=== PATIENT | female | born 1975 | race Caucasian/White ===

== ENCOUNTER 2018-12-30 14:00 | Outpatient (CLI) | payer OTHER ==
--- NOTE | 2019-01-03 09:29 | Mammography Report ---
Reason: ROUTINE MAMMO Procedure Date: 12/30/2018 Accession Number: [id number] / [id number] Procedure: MGN - Screening Mammo Dig Bilat CPT Code: Final Report FULL RESULT: EXAM: Screening Mammo Dig Bilat DATE: 12/30/2018 2:14 PM CLINICAL HISTORY: Screening encounter. History of late childbearing. TECHNIQUE: (B) - Bilateral CC and MLO views were obtained. COMPARISON: 11/13/2017. PARENCHYMAL PATTERN: (D) - The breast(s) demonstrate(s) heterogeneously dense fibroglandular parenchyma. FINDINGS: There are no suspicious masses, calcifications, or areas of distortion. IMPRESSION: Negative examination. BI-RADS category 1. RECOMMENDATION: (ANNUAL) - Recommend routine annual screening mammography. BI-RADS CATEGORY: (1) - Negative. STANDARD QUALIFYING STATEMENTS: 1. This examination was not reviewed with the aid of Computer-Aided Detection (CAD). 2. A negative or benign imaging report should not preclude biopsy if clinically suspicious findings are present. 3. Dense breasts may obscure an underlying neoplasm. 4. This examination was reviewed without the aid of 3D breast imaging (tomosynthesis).
== END 2018-12-30 14:01 | disposition home or self-care (01) ==
LOC: DI.N 14:00
DX: Z12.31 Encounter for screening mammogram for malignant neoplasm of breast (principal)
CPT/HCPCS: 77067

== ENCOUNTER 2020-04-02 07:24 | Day surgery (SDC) | payer OTHER ==
[2020-04-02] MEDS ORDERED: LACTATED RINGERS 1,000 ML IV ONE ×2 (07:30→11:23)
[2020-04-02] MEDS ORDERED: ceFAZolin 2 GM/50 ML 2 GM/50 ML BAG IV ONE (07:33)
[2020-04-02 07:45] LABS: HCG UR QUAL NEGATIVE
[2020-04-02] MEDS ORDERED: LIDOCAINE-MPF 2% 5 ML VIAL ONE (08:07)
[2020-04-02] MEDS ORDERED: PROPOFOL 200 MG/20 ML VIAL IVP ONE (08:07)
[2020-04-02] MEDS ORDERED: BUPIVACAINE 0.25% PF 30 ML VIAL ONE (08:47)
--- NOTE | 2020-04-02 08:53 | ANESTHESIA ---
Pre-Anesthesia VS, & Labs - Diagnosis Right Finger Fracture - Procedure right finger ORIF Vital Signs: Temp Pulse Resp BP Pulse Ox 36.6 C 95 16 127/74 98 04/02/20 07:31 04/02/20 07:31 04/02/20 07:31 04/02/20 07:31 04/02/20 07:31 Height: 5 ft 11 in Weight (kg): 90 kg Body Mass Index: 27.6 BMI Classification: Overweight - NPO >8 hours - Is Patient ?: No Home Medications and Allergies Home Medications: Ambulatory Orders Ascorbic Acid [Vitamin C] 500 mg PO DAILY 03/30/20 Calcium Carbonate/Vitamin D3 [Calcium 250-Vit D3 125 Tablet] 1 each PO DAILY 03/30/20 Magnesium 250 mg PO DAILY 03/30/20 Naproxen Sodium [Aleve] 220 mg PO DAILY 03/30/20 Zinc Gluconate [Zinc] 50 mg PO DAILY 03/30/20 Ascorbic Acid [Vitamin C] 500 mg PO DAILY 03/30/20 Calcium Carbonate/Vitamin D3 [Calcium 250-Vit D3 125 Tablet] 1 each PO DAILY 03/30/20 Magnesium 250 mg PO DAILY 03/30/20 Naproxen Sodium [Aleve] 220 mg PO DAILY 03/30/20 Zinc Gluconate [Zinc] 50 mg PO DAILY 03/30/20 Allergies/Adverse Reactions: Allergies Allergy/AdvReac Type Severity Reaction Status Date / Time No Known Drug Allergies Allergy Verified 04/02/20 07:53 Anes History & Medical History - Anesthetic History Anesthesia Complications: reports: No previous complications Family history of Anesthesia Complications: Denies Family history of Malignant Hyperthermia: Denies - Medical History Cardiovascular: reports: None Pulmonary: reports: Other Gastrointestinal: reports: None Urinary: reports: None Musculoskeletal: reports: Other Endocrine/Autoimmune: reports: None Skin: reports: None - Surgical History Eyes Ears Nose Throat (EENT): Tonsil/Adenoidectomy, Other Gynecologic: Dilation and currettage Orthopedic: Other Exam General: Alert, Oriented x3, Cooperative, No acute distress Dental: WNL Mouth Openin Fingerbreadth Neck Mobility: Normal Mallampati classification: II Thyromental Distance: 4-6 cm Respiratory: Lungs clear, Normal breath sounds, No respiratory distress, No accessory muscle use Cardiovascular: Regular rate, Normal S1, Normal S2, No murmurs Mental/Cognitive Status: Alert/Oriented X3, Normal for patient Cognitive Status: Within normal limits Plan Anesthesia Type: General Consent for Procedure(s) Verified and Reviewed: Yes Code Status: Attempt Resuscitation ASA classification: 1-Healthy patient Is this case an emergency?: No
[2020-04-02] MEDS ORDERED: fentaNYL 100 MCG/2 ML VIAL ONE ×2 (09:18→10:02)
[2020-04-02] MEDS ORDERED: ceFAZolin 1 GM VIAL ONE (09:18)
[2020-04-02] MEDS ORDERED: DEXAMETHASONE 4 MG/ML VIAL ONE (09:23)
[2020-04-02] MEDS ORDERED: ONDANSETRON 4 MG/2 ML VIAL ONE ×2 (09:23→12:31)
[2020-04-02] MEDS ORDERED: BUPIVACAINE 0.25% PF 30 ML VIAL SUBQ ONE ×2 (09:24→11:04)
[2020-04-02] MEDS ORDERED: ePHEDrine 50 MG/ML VIAL IVP PRN (10:07)
[2020-04-02] MEDS ORDERED: MORPHINE 2 MG/ML CARPUJECT IVP PRN (10:07)
[2020-04-02] MEDS ORDERED: METOCLOPRAMIDE 10 MG/2 ML VIAL IVP PRN (10:07)
[2020-04-02] MEDS ORDERED: ONDANSETRON 4 MG/2 ML VIAL IVP PRN ×2 (10:07→11:36)
[2020-04-02] MEDS ORDERED: NALOXONE 0.4 MG/ML VIAL IVP PRN (10:07)
[2020-04-02] MEDS ORDERED: ATROPINE ABBOJECT 1 MG/10 ML SYRINGE IVP PRN (10:07)
[2020-04-02] MEDS ORDERED: fentaNYL 100 MCG/2 ML VIAL IVP PRN (10:07)
[2020-04-02] MEDS ORDERED: HYDROmorphone 0.5 MG/0.5 ML SYRINGE IVP PRN (10:07)
[2020-04-02] MEDS ORDERED: LACTATED RINGERS 1,000 ML IV SCH (11:00)
[2020-04-02] MEDS ORDERED: oxyCODONE 5 MG TABLET PO PRN (11:36)
--- NOTE | 2020-04-02 11:58 | OPERATIVE REPORT ---
Operative Report - General Procedure Date: 04/02/20 - Procedure Note Anesthesia Technique: General LMA Estimated Blood Loss (mL): 5 - Other Other Information/Narrative: Date of Procedure: 02 April 2020 Planned Procedure: Right small finger proximal phalanx open versus closed reduction, percutaneous pinning versus internal fixation Pre-op diagnosis: Right small finger closed unstable proximal phalanx fracture Procedure performed: Right small finger proximal phalanx open reduction internal fixation Post-op diagnosis: Right small finger closed comminuted proximal phalanx fracture Primary Surgeon: MADDY HUBER Secondary Surgeon: RYDER MARK Anesthesia: General LMA EBL: 5 ml Tourniquet: 120 minutes, right arm at 250mmHg. Specimen(s) Information: None Implants: Synthes 1.3 mm T plate Synthes 1.3 mm cortex screws x7 (6 in plate, 1 independent lag) Complication(s): None Condition: Stable to recovery Indications for Surgery: The patient is a 44-year-old dyily-bqcc-lwftoley female who sustained injury to your right small finger approximately 2 weeks ago when she fell while moving a carpet. She landed on her right hand with pain and deformity to the small finger. Evaluated by her primary care provider, radiographs obtained demonstrating a proximal phalanx fracture and subsequently referred to orthopedics. Exam demonstrated. Swollen and shortened proximal phalanx with extensive ecchymosis to the ulnar hand. Xrays demonstrated a comminuted unstable proximal phalanx fracture that was translated and shortened. The patient was counseled on treatment options to attmpted closed reduction and casting versus closed reduction and percutaneous pinning vs open reduction and internal fixation. Given the instability of the fracture, I explained that casting or splinting would likely be unable to adequately hold the reduction. I recommended operative intervention. Risks of surgery were discussed to include bleeding, infection, postoperative stiffness, implant complications, pin tract infections, loss of reduction, need for further procedures procedures, damage to nerves, vessels, tendons, ligaments, bone and cartilage and anesthesia complications to include medication side effects and allergic reactions and even . After discussion, she wished to proceed. Subsequent to this visit, a CT was obtained for preoperative planning. The CT demonstrated extensive comminution, making successful percutaneous pinning unlikely. I discussed these findings with the patient on the morning of surgery. Findings: Shortened comminuted proximal phalanx fracture of the right small finger Descriptions of Procedure: The patient was met in the Preoperative Holding Area, at which time preoperative paperwork was confirmed. The right small finger proximal phalanx was signed. The patient was then brought to Main Operating Room, placed supine on the Operating Room table. General anesthesia was induced. The operative extremity was then prepped and draped over a hand table in the normal sterile fashion after a well- padded tourniquet was placed on the proximal arm. A surgical timeout was conducted to confirm the correct patient, correct extremity and correct procedure and to confirm that antibiotics had been administered within 30 minutes of incision time. The operative extremity was then exsanguinated with an Esmarch bandage and tourniquet inflated to 250mmHg. A dorsal incision was marked out from the metacarpophalangeal joint to the proximal interphalangeal joint of the small finger. The incision was sharply made using a 15 blade through the skin. Dissection was further carried out with tenotomy scissors to the level of the extensor tendon. Extensor tendon was then split near midline longitudinally from the proximal edge of the phalanx to the distal edge of the phalanx. A layer was developed between the deep surface of the extensor tendon and the periosteum. The tendon was retracted and then the periosteal layer was longitudinally incised and elevated from the surface of the bone using a [place] elevator. The fracture was exposed, and the fracture edges were debrided of fibrous tissue and fracture hematoma the longitudinal split in the distal piece was more apparent and distracted then was demonstrated on the CT scan. The decision was made to place a lag screw between the 2 fragments to stabilize the splint. A 1.3 mm lag screw was placed with good stabilization of the longitudinal split. Next we turned our attention to the more proximal oblique fracture line. A Synthes 1.3 mm T plate was selected and templated on the bone using fluoroscopy. The size of the plate was confirmed to be appropriate, and once satisfied with the alignment, a single cortex screw was placed through the plate proximally to anchor it to the proximal fragment. We then clamped the plate to the bone to affect a reduction between the proximal and distal fragments. We visually confirmed the reduction and then sequentially placed screws distal to the fracture line. We attempted to lag through the plate through the oblong hole in a lag by technique manner, however there was not great purchase in the distal bone. We placed 2 more screws distally, and then came back to the oblong hole and replaced that screw with a screw lag by technique and a different trajectory. 2 additional screws were placed in the proximal fragment. Fluoroscopy was used to confirm screw length. The 2 distalmost screws were found to be a couple millimeters too long and so they were exchanged for more appropriately sized screws. Fluoroscopy was used to confirm screw length and fracture reduction, finger rotation was confirmed to be normal by bending the fingers and also the utilizing the tenodesis effect of the wrist. Satisfied with the construct, the wound was irrigated and then a layered closure was began. The periosteal layer was closed over the plate using a running 3-0 Vicryl. The extensor tendon was then closed using a running 3-0 Vicryl proximally and several interrupted 3-0 Vicryl simple stitches distally. Following this repair the wound was again irrigated and I took the finger through range of motion to ensure that we had not overtightened anything. The skin was then closed using a combination of vertical and horizontal mattress sutures with 4-0 nylon. Local anesthetic to the small finger was provided using 5 mL of quarter percent Marcaine plain. The incision was dressed with Xeroform and 4 x 4 gauze. 4 x 4 gauze fluffs were placed between the fingers and then a plaster ulnar gutter splint was applied and secured in place with a gently compressive Donovan bandage. The tourniquet was let down. The patient was then awakened from general anesthesia without complication, brought to the Post Anesthesia Care for further recovery. Postoperative Plan: 1. The patient will be discharged from the Same Day Surgery Unit when discharge criteria are met. 2. The patient will remain in a splint for approximately 3 days until hand therapy follow-up, the splint will be removed by the therapists, with fabrication of a removable Orthoplast splint and initiation of early active motion. 3. I expect addition of passive motion at approximately 4-6 weeks depending on fracture healing 4. Discharge precautions were provided in both verbal and written form to the patient
[2020-04-02 12:30] VITALS: BP 105/67
--- NOTE | 2020-04-02 13:49 | ANESTHESIA POST OP EVALUATION ---
Anesthesia Post Eval - Post Anesthesia Eval Vitals: Last Vital Signs Temp 36.5 C 04/02/20 11:58 Pulse 88 04/02/20 12:26 Resp 14 04/02/20 12:26 BP 105/67 04/02/20 12:26 Pulse Ox 96 04/02/20 12:26 CV Function Including HR & BP: positive: Stable Pain Control: positive: Satisfactory Nausea & Vomiting: positive: Negative Mental Status: positive: Patient Participates Respiratory Status: Airway Patent Hydration Status: Satisfactory Anesthesia Complications: positive: None
== END 2020-04-02 07:25 | disposition home or self-care (01) ==
LOC: SDS 07:24
PROVIDERS: ATTEND Orthopaedic Surgery
DX: S62.616A Displaced fracture of proximal phalanx of right little finger, initial encounter for closed fracture (principal); E66.3 Overweight; Z68.27 Body mass index [BMI] 27.0-27.9, adult
CPT/HCPCS: 26735; 81025; J0690; J7120

== ENCOUNTER 2020-04-28 13:01 | Outpatient (CLI) | payer OTHER ==
--- NOTE | 2020-04-29 07:24 | Mammography Report ---
BILATERAL DIGITAL SCREENING MAMMOGRAM 3D/2D: 04/28/2020 CLINICAL: Routine screening. Comparison is made to exams dated: 12/30/2018 mammogram - [facility] and 11/13/2017 mammogram - [facility]. The tissue of both breasts is heterogeneously dense. This may lower the sensitivity of mammography. There is a new round low density asymmetry with an obscured and circumscribed margin in the left [address] st at 7 o'clock middle depth. There also is a new round asymmetry with a circumscribed margin in the left breast middle depth centr al to the nipple seen on the mediolateral oblique view only. No other significant masses, calcifications, or other findings are seen in either breast. IMPRESSION: INCOMPLETE: NEEDS ADDITIONAL IMAGING EVALUATION The new round low density asymmetry in the left breast at 7 o'clock middle depth is indeterminate. A dditional views with possible ultrasound are recommended. The new round asymmetry in the left breast middle depth central to the nipple seen on the mediolatera l oblique view only most likely is a lymph node and is indeterminate. Additional views with possible ultrasound are recommended. This exam was interpreted at Station ID: [id number]. NOTE: For mammograms, a report in lay terms will be sent to the patient. Approximately 15% of breast malignancies will not be visualized mammographically. In the management of a palpable breast mass, a negative mammogram must not discourage biopsy of a clinically suspicious lesion. Electronically Signed By: Angela clinton/:04/28/2020 16:51:03 ACR BI-RADS Category 0: Incomplete 3340F PARENCHYMAL PATTERN: (D) - The breast(s) demonstrate(s) heterogeneously dense fibroglandular parelias zamarripa. BI-RADS CATEGORY: (0) - 0 Mammo and [place] [id number] Immediate follow-up LATERALITY: (B)
== END 2020-04-28 13:02 | disposition home or self-care (01) ==
LOC: DI.N 13:01
DX: Z12.31 Encounter for screening mammogram for malignant neoplasm of breast (principal); N64.89 Other specified disorders of breast

== ENCOUNTER 2020-05-18 08:25 | Outpatient (CLI) | payer OTHER ==
--- NOTE | 2020-05-19 13:40 | Mammography Report ---
UNILATERAL LEFT DIGITAL DIAGNOSTIC MAMMOGRAM 3D/2D: 05/18/2020 CLINICAL: Patient returns today to evaluate a focal asymmetry in the left breast. Comparison is made to exams dated: 04/28/2020 mammogram, 12/30/2018 mammogram - [facility], and 11/13/2017 mammogram - [facility]. The tissue of left breast is heterogeneo usly dense. This may lower the sensitivity of mammography. There is an oval equal density mass in the left breast at 7 o'clock middle depth. This is seen in ad ditional views. There also is a 0.3 cm oval focal asymmetry in the left breast central to the nipple posterior depth. No other significant masses or calcifications are seen in the breast. IMPRESSION: INCOMPLETE: NEEDS ADDITIONAL IMAGING EVALUATION 1) Mass in the left breast at 7 o'clock middle depth is indeterminate. -A targeted ultrasound is recommended and will immediately follow. 2) The 0.3 cm oval focal asymmetry in the left breast central to the nipple posterior depth resembles a cyst or an intramammary node and is indeterminate. -A targeted ultrasound is recommended and will immediately follow. This exam was interpreted at Station ID: [id number]. NOTE: For mammograms, a report in lay terms will be sent to the patient. Approximately 15% of breast malignancies will not be visualized mammographically. In the management of a palpable breast mass, a negative mammogram must not discourage biopsy of a clinically suspicious lesion. Electronically Signed By: Evan Mccullough M.D. slc/:05/18/2020 10:14:11 ACR BI-RADS Category 0: Incomplete 3340F PARENCHYMAL PATTERN: (D) - The breast(s) demonstrate(s) heterogeneously dense fibroglandular meghan zamarripa. BI-RADS CATEGORY: (0) - 0 Ultrasound [id number] Immediate follow-up LATERALITY: (B)
--- NOTE | 2020-05-19 13:40 | Ultrasound Report ---
LIMITED ULTRASOUND OF LEFT BREAST AND AXILLA: 05/18/2020 CLINICAL: Patient returns today to evaluate a focal asymmetry in the left breast. Comparison is made to exams dated: 04/28/2020 mammogram, 12/30/2018 mammogram - [facility], and 11/13/2017 mammogram - [facility]. Color flow and real-time ultrasound of the left breast 7 o'clock, 9 o'clock, retroareolar, and axilla regions were performed. Cottrell scale images of the real-time examination were reviewed. There is a 1 cm x 0.7 cm x 0.5 cm oval mass with a circumscribed margin in the left breast at 7 o'amada ck middle depth 4 cm from the nipple. This oval mass is hypoechoic. This correlates with mammograph y findings. Color flow imaging demonstrates that there is vascularity present. No significant abnormalities were seen sonographically in the left axilla. IMPRESSION: SUSPICIOUS OF MALIGNANCY 1) The 1 cm x 0.7 cm x 0.5 cm oval mass in the left breast resembles a fibroadenoma and is at a low s uspicion for malignancy. -An ultrasound guided biopsy is recommended. 2) No ultrasound correlate for the focal asymmetry in the central breast. -A follow-up mammogram is recommended in 6 months. Exam findings were discussed with the patient by Dr. Luis Mak. This exam was interpreted at Station ID: [id number]. Electronically Signed By: Evan Mccullough M.D. slc/:05/18/2020 10:02:26 Ultrasound BI-RADS: 4a Low suspicion for malignancy BI-RADS CATEGORY: (4a) - Low Susp None [id number] Immediate follow-up LATERALITY: ()
== END 2020-05-18 08:26 | disposition home or self-care (01) ==
LOC: DI 08:25
PROVIDERS: ATTEND Physician Assistant
DX: R92.8 Other abnormal and inconclusive findings on diagnostic imaging of breast (principal); N63.24 Unspecified lump in the left breast, lower inner quadrant

== ENCOUNTER 2020-06-02 12:07 | Outpatient (CLI) | payer OTHER ==
[~2020-06-02 12:07] MED LIST: BUFFERED LIDOCAINE 10 ML SYRINGE ONE; LIDOCAINE MPF 1%-EPI 1:200000 30 ML VIAL ONE
[2020-06-02] MEDS ORDERED: BUFFERED LIDOCAINE 10 ML SYRINGE IU ONE (15:39)
[2020-06-02] MEDS ORDERED: LIDOCAINE 1%-EPI 1:100000 30 ML MDV ID ONE (17:00)
[2020-06-02] MEDS ORDERED: LIDOCAINE MPF 1%-EPI 1:200000 30 ML VIAL ID ONE (17:00)
--- NOTE | 2020-06-03 12:25 | Mammography Report ---
UNILATERAL LEFT DIGITAL DIAGNOSTIC MAMMOGRAM 3D/2D: 06/02/2020 CLINICAL: Post left breast ultrasound biopsy clip placement imaging. Comparison is made to exams dated: 05/18/2020 mammogram, 05/18/2020 ultrasound, 12/30/2018 mammogram, mammogram - [facility], and 11/13/2017 mammogram - [facility] . The tissue of left breast is heterogeneously dense. This may lower the sensitivity of mammography. There is a marker clip in the appropriate position in the left breast at 7 o'clock middle depth. Thi s correlates with the biopsy. IMPRESSION: POST PROCEDURE MAMMOGRAM FOR MARKER PLACEMENT There was a successful marker clip placement in the left breast middle depth. Future imaging is recommended as follows: 11/18/2020 left mammogram and left ultrasound. This exam was interpreted at Station ID: [id number]. NOTE: For mammograms, a report in lay terms will be sent to the patient. Approximately 15% of breast malignancies will not be visualized mammographically. In the management of a palpable breast mass, a negative mammogram must not discourage biopsy of a clinically suspicious lesion. Electronically Signed By: Alejo Thompson M.D. aty/:06/02/2020 16:24:24 ACR BI-RADS Category Post-procedure mammogram for marker placement PARENCHYMAL PATTERN: (D) - The breast(s) demonstrate(s) heterogeneously dense fibroglandular meghan zamarripa. BI-RADS CATEGORY: () - Unspecified - other recall n/a LATERALITY: (B)
--- NOTE | 2020-06-03 14:57 | Ultrasound Report ---
ULTRASOUND GUIDED BIOPSY LEFT BREAST WITH MARKING DEVICE INSERTED: 06/02/2020 CLINICAL: Left breast mass. PATIENT CONSENT: Risks (minor bleeding, infection, vasovagal reaction and repeat procedure), benefits and alternatives were explained to the patient and written informed consent was obtained. Correlation is made to exams dated: 05/18/2020 mammogram, 05/18/2020 ultrasound, 04/28/2020 mammogram, 1 03/01/2018 mammogram - [facility], and 11/13/2017 mammogram - [facility] An ultrasound guided biopsy using real-time ultrasound was performed for the 0.9 cm x 0.6 cm x 0.8 cm oval mass located in the left breast at 7 o'clock middle depth 4 cm from the nipple. This was descr ibed on the previous mammography and ultrasound reports. The skin was prepped in the usual manner. Local anesthetic was administered to the access site. A skin geovanny was made in the breast. The abnor mality was approached from the lateral aspect. A 13 gauge biopsy needle was placed adjacent to the a bnormality under ultrasound guidance. Once the needle was documented to be in the correct location, four specimens were obtained using an automated biopsy gun. A clip was inserted into the biopsy cavi ty. A sterile dressing was applied to the access site. Post procedure imaging demonstrates the loca tion device at the targeted area. The specimens were sent to the laboratory for pathological analysi s. IMPRESSION: ULTRASOUND GUIDED BIOPSY BENIGN Ultrasound guided biopsy of the 0.9 cm x 0.6 cm x 0.8 cm mass in the left breast at 7 o'clock middle depth 4 cm from the nipple was successful. Pathology indicates an intraductal papilloma. Pathology results are concordant with mammography and ultrasound findings. Recommend surgical consultation for possible excisional biopsy. A follow-up mammogram and a possible ultrasound in 6 months are recommended to demonstrate stability of the asymmetry in the central left breast seen on prior mammogram. Future imaging is recommended a s follows: 11/18/2020 left mammogram and an ultrasound. This exam was interpreted at Station ID: [id number]. Alejo sinclair,ddp/:06/03/2020 13:38:27 BI-RADS CATEGORY: () - Mammo and [place] [id number] 6 month follow-up LATERALITY: (B)
== END 2020-06-02 12:08 | disposition home or self-care (01) ==
LOC: DI 12:07
PROVIDERS: ATTEND Family Medicine
DX: D24.2 Benign neoplasm of left breast (principal)
CPT/HCPCS: 19083